=== PATIENT | female | born 1960 | race Two or more races ===

== ENCOUNTER 2019-07-11 13:07 | Inpatient (IN) | payer MEDICAID ==
[~2019-07-11] VITALS: Ht 170.2 cm; Wt 70.5 kg
[2019-07-11] MEDS ORDERED: SODIUM CHLORIDE 0.9% 250 ML IV ONE (13:51)
[2019-07-11] MEDS ORDERED: SODIUM CHLORIDE 0.9% 1,000 ML IV ONE ×2 (14:15→16:00)
[2019-07-11 14:29] LABS: Basophils # (auto) 0 uL; Basophils % (auto) 0.3 % (0.0-2.0); Eosinophils # (auto) 0.3 uL; Eosinophils % (auto) 3.2 % (0.0-7.0); Hematocrit 34.6 % (36.0-46.0); Hemoglobin 11.7 g/dL (12.2-16.2); Lymphocytes # (auto) 0.9 uL; Lymphocytes % (auto) 8.4 % (10.0-50.0); Mean Corpuscular Hemoglobin 29.9 pg (28.0-32.0); Mean Corpuscular Volume 88.2 fL (80.0-100.0); Monocytes # (auto) 0.7 uL; Monocytes % (auto) 6.5 % (0.0-12.0); Neutrophils # (auto) 8.7 uL; Neutrophils % (auto) 81.6 % (37.0-80.0); Platelet Count (auto) 167 10^3/uL (140-450); Red Blood Cells 3.92 10^6/uL (4.0-5.20); Red Cell Distribution Width 13.3 % (11.8-14.3); White Blood Cell 10.7 10^3/uL (4.4-10.8)
[2019-07-11 14:43] LABS: Potassium 4.4 mmol/L (3.5-5.1)
[2019-07-11 14:44] LABS: INR 1.03 (0.9-1.15); Partial Thromboplastin Time 30.7 sec (23.64-32.05)
[2019-07-11 14:51] LABS: Albumin 2.4 g/dL (3.4-5.0); Bilirubin, Total 1.1 mg/dL (0.2-1.0); Total Protein 7.7 g/dL (6.4-8.2)
[2019-07-11 17:21] LABS: Urine Amorphous Crystal FEW /hpf (None Seen); Urine Bacteria FEW /hpf (None Seen); Urine Blood 2+ /uL (Negative); Urine Hyaline Cast FEW /lpf (0 - 2); Urine Specific Gravity 1.015 (1.001-1.035); Urine WBC 87 /hpf (0 - 5); Urine WBC Clumps PRESENT /hpf (None Seen)
[2019-07-11] MEDS ORDERED: PIPERACILLIN-TAZOB 3.375GM 100 ML IV ONE (18:00)
[2019-07-11] MEDS ORDERED: InsuLIN REG 1unit/0.01ml Soln (100units/ml) IV ONE (18:00)
[2019-07-11] MEDS ORDERED: NALBUPHINE HCL 10 MG/1ml INJECTION IV PRN (18:15)
[2019-07-11] MEDS ORDERED: PROMETHAZINE HCL 25 MG/ML 1ML IV PRN (18:15)
[2019-07-11] MEDS ORDERED: traMADol HCL 50 MG TAB PO PRN (18:15)
[2019-07-11] MEDS ORDERED: DEXTROSE (50%) 50ML SYRG IV PRN (18:15)
[2019-07-11] MEDS ORDERED: NITROGLYCERIN 0.4 MG SL TAB SL PRN (18:15)
[2019-07-11] MEDS: SODIUM CHLORIDE 0.9% 1,000 ML IV SCH (18:24)
[2019-07-11] MEDS: ENOXAPARIN SOD 40 MG/0.4 ML SYRINGE SC ONE ×2 (18:25→18:26)
[2019-07-11] MEDS ORDERED: ASPirin 81 mg TAB PO ONE (18:30)
[2019-07-11] MEDS ORDERED: cefTRIAXone 1GM/50ML D5W 50 ML IV ONE (18:45)
[2019-07-11 18:47] LABS: Alcohol, Urine < 3.0 mg/dL (0-5); Amphetamine Screen, Urine NEGATIVE (NEGATIVE); Barbiturate Scree,Urine NEGATIVE (NEGATIVE); Benzodiazephine Screen, Urine NEGATIVE (NEGATIVE); Cannabinoid Screen, Urine NEGATIVE (NEGATIVE); Cocaine Screen, Urine NEGATIVE (NEGATIVE); Opiate Scree,Urine NEGATIVE (NEGATIVE); Phencyclidine Screen, Urine NEGATIVE (NEGATIVE)
[2019-07-11 19:00] LABS: Amylase 5 U/L (25-115); Lipase 43 U/L (73-393)
[2019-07-11 19:04] LABS: CRP High Sensitivity > 19.0 mg/dL (< 0.3)
[2019-07-11 19:56] LABS: Lactic Acid w/Reflex 2.5 mmol/L (0.4-2.0)
[2019-07-11] MEDS: ACCU-CHEK COMFORT CURVE STRIP VI SCH ×2 (21:04→23:58)
[2019-07-11] MEDS: LORazepam 2MG/ML-1ML VIAL IV PRN (21:11)
[2019-07-11] MEDS: InsuLIN REG 1unit/0.01ml Soln (100units/ml) SC SCH (21:11)
[2019-07-11] MEDS: ATORVASTATIN 20 MG TAB PO SCH (21:30)
[2019-07-12] VITALS (18 sets, daily range): BP systolic 129–164; BP diastolic 55–81
[2019-07-12] MEDS: InsuLIN REG 1unit/0.01ml Soln (100units/ml) SC SCH ×6 (00:02→20:27)
[2019-07-12] MEDS: SODIUM CHLORIDE 0.9% 1,000 ML IV SCH ×4 (00:55→23:12)
[2019-07-12] MEDS: PIPERACILLIN-TAZOB 3.375GM 100 ML IV SCH ×4 (00:55→18:02)
[2019-07-12] MEDS ORDERED: LABETALOL HCL 5 MG/ML ML 20ML VIAL IV ONE (03:30)
[2019-07-12] MEDS: ACCU-CHEK COMFORT CURVE STRIP VI SCH ×5 (04:25→20:27)
[2019-07-12 07:03] LABS: Hematocrit 32.5 % (36.0-46.0); Hemoglobin 11.1 g/dL (12.2-16.2); Mean Corpuscular Hemoglobin 29.6 pg (28.0-32.0); Mean Corpuscular Hgb Conc. 34.2 g/dL (32.0-36.0); Mean Corpuscular Volume 86.5 fL (80.0-100.0); Platelet Count (auto) 180 10^3/uL (140-450); Red Blood Cells 3.75 10^6/uL (4.0-5.20); Red Cell Distribution Width 13.3 % (11.8-14.3); White Blood Cell 15.8 10^3/uL (4.4-10.8)
[2019-07-12 07:11] LABS: Basophils % (manual) 0 (0.0-2.0); Blast Cells 0; Eosinophils % (manual) 0 (0-7); Metamyelocytes % 0; Myelocytes % 0; Promyelocytes % 0; Reactive Lymphocytes 0
[2019-07-12 07:33] LABS: Band Neutrophils % (manual) 8; Lymphocytes % (manual) 4 (10.0-50.0); Monocytes % (manual) 6 (0-12)
[2019-07-12 08:00] LABS: Calcium 8.2 mg/dL (8.5-10.1); Potassium 3.8 mmol/L (3.5-5.1)
[2019-07-12 08:06] LABS: BUN/Creatinine Ratio 17.5; Total Protein 6.7 g/dL (6.4-8.2)
[2019-07-12] MEDS ORDERED: FUROSEMIDE 20 MG/2 ML VIAL ONE (08:33)
[2019-07-12] MEDS ORDERED: FUROSEMIDE 20 MG/2 ML VIAL IV ONE (08:45)
[2019-07-12] MEDS ORDERED: METOPROLOL TARTRATE 1MG/1ML-5ML VIAL IV ONE (08:45)
[2019-07-12] MEDS ORDERED: DILTIAZEM HCL 25 MG/5 ML VIAL IV ONE (10:45)
[2019-07-12] MEDS: ASPirin 81 mg TAB PO SCH (10:53)
[2019-07-12] MEDS: METOPROLOL TARTRATE 25 MG TAB PO SCH ×2 (10:53→21:36)
[2019-07-12] MEDS: ENOXAPARIN SOD 40 MG/0.4 ML SYRINGE SC SCH ×2 (10:55→21:35)
[2019-07-12] MEDS: PANTOPRAZOLE 40 MG TAB PO SCH (10:55)
[2019-07-12] MEDS: NICOTINE 14 MG/24HR TOPICAL PATCH TD SCH (10:56)
[2019-07-12] MEDS ORDERED: FUROSEMIDE 40 MG/4 ML VIAL IV ONE (11:45)
--- NOTE | 2019-07-12 16:20 | NUR ---
FAMILY AT BEDSIDE Family DONTAE Murry at bedside, daughter and granddaughter updated on patient's status and condition. All questions and concerns addressed. Family verbalized understanding.
--- NOTE | 2019-07-12 16:21 | NUR ---
Pt being admitted to ICU [facility], DONTAE admitted to ICU via gurney on compliance monitor, and portable 02. Patient transferred to bed, connected to ICU monitoring and oxygen, and weighed by [facility]. Patient oriented to Chika Palumbo, primary RN, unit, room, bed, and unit policies regarding patient care and visiting hours. Canales catheter patent and draining clear/yellow urine to gravity. Slovak speaking patient alert and oriented x3 with noted fatigue. All questions and concerns addressed, patient verbalized understanding. Call light within reach, fall and safety precautions in place. Addendum: 07/12/19 at 1626 by Chika Palumbo RN CORRECT TIME OF ICU ADMISSION WAS 1530.
[2019-07-12] MEDS ORDERED: FUROSEMIDE 40 MG/4 ML VIAL IV SCH (18:00)
--- NOTE | 2019-07-12 19:12 | NUR ---
END OF SHIFT NOTE PATIENT RESTING IN BED, ALERT AND ORIENTED X3-4 WITH EPISODES OF FORGETFULNESS. NO DISTRESS NOTED, RESPIRATIONS EVEN AND UNLABORED. PATIENT CURRENTLY ON 4 LITERS OXYGEN VIA NASAL CANNULA. PATIENT CARE ENDORSED TO [employer] SUPERVISOR RN, FALL AND SAFETY PRECAUTIONS IN PLACE.
[2019-07-12] MEDS: ATORVASTATIN 20 MG TAB PO SCH (21:36)
[2019-07-13] VITALS (22 sets, daily range): BP systolic 111–186; BP diastolic 47–77
[2019-07-13] MEDS: LORazepam 2MG/ML-1ML VIAL IV PRN (00:06)
[2019-07-13] MEDS: PIPERACILLIN-TAZOB 3.375GM 100 ML IV SCH ×4 (00:10→18:26)
--- NOTE | 2019-07-13 00:10 | NUR ---
ATIVAN GIVEN PATIENT IS RESTLESS, REMOVES EKG LEADS AND OXYGEN AND TACHYPNEIC. ATIVAN 1MG IV GIVEN ORDERED.
[2019-07-13] MEDS: ACCU-CHEK COMFORT CURVE STRIP VI SCH ×5 (00:20→16:17)
[2019-07-13] MEDS: InsuLIN REG 1unit/0.01ml Soln (100units/ml) SC SCH ×5 (00:34→16:16)
[2019-07-13 04:23] LABS: Basophils # (auto) 0.1 uL; Basophils % (auto) 0.4 % (0.0-2.0); Eosinophils # (auto) 0.1 uL; Hematocrit 32.1 % (36.0-46.0); Hemoglobin 10.8 g/dL (12.2-16.2); Lymphocytes # (auto) 2.3 uL; Lymphocytes % (auto) 15.9 % (10.0-50.0); Mean Corpuscular Hemoglobin 29.2 pg (28.0-32.0); Mean Corpuscular Hgb Conc. 33.8 g/dL (32.0-36.0); Mean Corpuscular Volume 86.4 fL (80.0-100.0); Monocytes # (auto) 1.2 uL; Monocytes % (auto) 8.2 % (0.0-12.0); Neutrophils # (auto) 10.9 uL; Neutrophils % (auto) 74.5 % (37.0-80.0); Platelet Count (auto) 178 10^3/uL (140-450); Red Blood Cells 3.71 10^6/uL (4.0-5.20); Red Cell Distribution Width 13.5 % (11.8-14.3); White Blood Cell 14.6 10^3/uL (4.4-10.8)
[2019-07-13 04:52] LABS: BUN/Creatinine Ratio 14.1; Calcium 8.2 mg/dL (8.5-10.1); Magnesium 2.1 mg/dL (1.6-2.6)
[2019-07-13 04:57] LABS: Bilirubin, Total 1.1 mg/dL (0.2-1.0); Total Protein 6.8 g/dL (6.4-8.2)
--- NOTE | 2019-07-13 06:00 | NUR ---
ASSESSMENT PATIENT IS LETHARGIC, ANSWERS TO QUESTIONS APPROPRIATELY, AND RESTLESS. PATIENT IS ON AND OFF TACHYPNEIC. NASAL CANNULA 4L.
--- NOTE | 2019-07-13 08:00 | NUR ---
OPENING NOTE Received patient in bed resting with eyes closed, easily arousable to verbal stimuli. Patient alert and oriented X4 with periods of forgetfulness. Patient able to move all extremities without difficulty. Sinus tachycardia in the 120's on bedside monitor and pulses palpable on upper/lower extremities with no edema observed. Lungs clear on nasal cannula at 4 Liters and sating in the low 90's. Abdomen soft, non tender and non distended, bowel sounds present in all quadrants with last bowel movement 07/10/2019. Canales catheter draining to gravity clear dark kelly urine. IV to the left hand 22g; flushes easily and good blood return infusing normal saline at 100ml/hr. Skin intact. Call light within reach and bed at lowest position and side rails up. Bed alarm on. Will continue to monitor patient.
[2019-07-13 08:28] LABS: Albumin 1.8 g/dL (3.4-5.0)
[2019-07-13] MEDS: SODIUM CHLORIDE 0.9% 1,000 ML IV SCH (09:01)
[2019-07-13] MEDS: NICOTINE 14 MG/24HR TOPICAL PATCH TD SCH (10:00)
[2019-07-13] MEDS: ENOXAPARIN SOD 40 MG/0.4 ML SYRINGE SC SCH (10:00)
[2019-07-13] MEDS: PANTOPRAZOLE 40 MG TAB PO SCH (10:00)
[2019-07-13] MEDS: METOPROLOL TARTRATE 25 MG TAB PO SCH (10:00)
[2019-07-13] MEDS: ASPirin 81 mg TAB PO SCH (10:00)
--- NOTE | 2019-07-13 10:10 | NUR ---
MD Dr. Reid at bedside updated on patient condition with new orders, MD to input into system. MD spoke to patient regarding plan of care with no questions from patient.
[2019-07-13] MEDS ORDERED: SOD CHL 0.45% WITH 20MEQ KCL 1,000 ML IV SCH (10:15)
[2019-07-13] MEDS ORDERED: POTASSIUM CHLORIDE 40 MEQ, LIDOCAINE 1% (LOCAL ANESTH.) 4 ML in SODIUM CHL 0.9% 100 ML IV ONE (10:15)
--- NOTE | 2019-07-13 11:00 | NUR ---
ACTIVITY Bed alarm sounding off, found patient attempting to get out of bed. Assisted patient to bedside commode and patient was not able to have bowel movement. at bedside. Informed him to call this RN when patient is ready to get up by using call light. Patient found in chair after verbalized to this RN that he was not able to stop her from getting up so he just helped her to the chair. Educated patient and patient the importance of using the call light to get up out of bed/chair for assistance to prevent falls and getting equipment pulled off. Patient/patient both verbalized understanding and apologized profusely.
--- NOTE | 2019-07-13 14:35 | NUR ---
ACTIVITY Patient attempted to get out of bed, bed alarm sounded off and charge nurse Shirlene helped patient get out of bed into chair. Shirlene spoke to patient and patient nods head per Shirlene to use call light with needing assistance.
--- NOTE | 2019-07-13 14:45 | NUR ---
CARDIAC DRAFTER [employer] Sarah, DRAFTER GEOPHYSICAL at bedside updated on patient condition with new orders, this [employer]TER [employer] to input into system. DRAFTER GEOPHYSICAL spoke to patient regarding plan of care. No questions asked from patients stand point.
--- NOTE | 2019-07-13 14:50 | NUR ---
ACTIVITY Patient seen trying to stand up from chair to get back into bed. Informed patient multiple times to call for assistance with call light which is in reach. Patient verbalizes understanding, BUT is all she does. Patient will not use call light after multiple attempts to educate patient.
[2019-07-13] MEDS ORDERED: LISINOPRIL 5 MG TAB PO ONE (15:00)
--- NOTE | 2019-07-13 16:45 | NUR ---
FAMILY Received phone call from daughter, correct password given. Informed daughter that patient is wanting to leave at this time. Daughter states " She cant go shes sick." Informed her that patient is alert and oriented and I am not able to kept her here against her will. Daughter states " Will call her to convince her to stay."
--- NOTE | 2019-07-13 19:46 | NUR ---
AMA PT LEFT AMA AT 1925. PT EDUCATED ON IMPORTANCE OF CONTINUED HOSPITAL CARE. PT AND VERBALIZE UNDERSTANDING. LAST VS. OBTAINED HR 119, BP 163/79, O2 87% ON RA. NO DISTRESS NOTED. PT DENIES PAIN. IV REMOVED AND PRESSURE DRESSING APPLIED. PT DRESSED SELF AND LEFT ON FOOT ACCOMPANIED BY .
[2019-07-13] MEDS ORDERED: CARVEDILOL 3.125 MG TAB PO SCH (22:00)
[2019-07-14] MEDS ORDERED: LISINOPRIL 5 MG TAB PO SCH (10:00)
== END 2019-07-13 19:26 | disposition left against medical advice (07) | DRG 720 ==
LOC: ER 13:11 → TELE 13:12 → ICU WEST 07-12 16:13
PROVIDERS: ADMIT Internal Medicine; ATTEND Internal Medicine
DX: A41.9 Sepsis, unspecified organism (principal); I21.A1 Myocardial infarction type 2; E43 Unspecified severe protein-calorie malnutrition; E11.10 Type 2 diabetes mellitus with ketoacidosis without coma; N17.9 Acute kidney failure, unspecified; E86.0 Dehydration; E11.22 Type 2 diabetes mellitus with diabetic chronic kidney disease; E78.5 Hyperlipidemia, unspecified; E87.6 Hypokalemia; N39.0 Urinary tract infection, site not specified; I70.0 Atherosclerosis of aorta; I12.9 Hypertensive chronic kidney disease with stage 1 through stage 4 chronic kidney disease, or unspecified chronic kidney disease; N18.9 Chronic kidney disease, unspecified; I25.2 Old myocardial infarction; Z91.19 Patient's noncompliance with other medical treatment and regimen; Z68.24 Body mass index [BMI] 24.0-24.9, adult; Z88.5 Allergy status to narcotic agent; Z79.84 Long term (current) use of oral hypoglycemic drugs
CPT/HCPCS: 36415; 36600; 71045; 71046; 74176; 76705; 78226; 80053; 80307; 81001; 82150; 82550; 82805; 82962; 83036; 83605; 83690; 83735; 83880; 84443; 84484; 85007; 85025; 85027; 85379; 85610; 85652; 85730; 86141; 87040; 87077; 87081; 87086; 87186; 93005; 93306; 93970; G0378; J0696; J1815; J2001; J2543